=== PATIENT | female | born 1990 | race Caucasian/White ===

== ENCOUNTER 2024-08-23 17:23 | Emergency (ER) | payer MEDICAID, SELFPAY ==
[2024-08-23 17:28] VITALS: BP 162/96; PULSE 106; TEMP 36.7; O2SAT 99; BMI 30.4
--- NOTE | 2024-08-23 17:44 | ED.EAR1 ---
HPI - Ear Problem General Chief complaint: Ear Stated complaint: EARACHE Time Seen by Provider: 08/23/24 17:27 Source: patient Mode of arrival: walk-in Limitations: no limitations History of Present Illness HPI Narrative: 34-year-old female presents for severe right ear pain. She has had it for the last day or 2 and there is been no trauma or drainage. She does not have a sore throat or symptoms in the left ear. The pain is continuous. Related Data Previous Rx's ?Medication ?Instructions ?Recorded acetaminophen 300 mg-codeine 30 mg 1 tab PO Q6H PRN pain 3 days #14 08/23/24 tablet tabs amoxicillin 500 mg capsule 500 mg PO TID 10 days #30 caps 08/23/24 ibuprofen 800 mg tablet 800 mg PO Q8H PRN pain #20 tabs 08/23/24 Allergies Allergy/AdvReac Type Severity Reaction Status Date / Time No Known Drug Allergies Allergy Verified 08/23/24 17:30 Review of Systems ROS Narrative A ten point review of systems is negative except as noted above. PFSH PFSH Social History Little interest or pleasure in doing things: not at all Feeling down, depressed, or hopeless: not at all Exam Narrative Exam Narrative: Nurses note and vital signs reviewed and patient is not hypoxic. General: The patient appears uncomfortable. Skin: Warm, dry, no pallor noted. There is no rash noted. Head: Normocephalic, atraumatic Eye: Normal conjunctiva, no drainage Ears, Nose, Mouth, and Throat: oral mucosa is moist. Nares patent. Left TM is obscured by cerumen. The right external canal is normal without cerumen but the right TM is quite erythematous with a distorted light reflex. Cardiovascular: Regular Rate and Rhythm Respiratory: Patient is in no distress, no accessory muscle use, lungs are clear to auscultation, no wheezing, rales or rhonchi Back: non-tender GI: Soft and nontender Musculoskeletal: No joint swelling Neurological: A&O, normal speech Psychiatric: Cooperative Constitutional Vital Signs, click to edit/add: Last Vital Signs Temp 98.1 F 08/23/24 17:28 Pulse 106 H 08/23/24 17:28 Resp 18 08/23/24 17:28 BP 162/96 H 08/23/24 17:28 Pulse Ox 99 08/23/24 17:28 O2 Del Method Room Air 08/23/24 17:28 Course Vital Signs Vital signs: Vital Signs Temperature 98.1 F 08/23/24 17:28 Pulse Rate 106 H 08/23/24 17:28 Respiratory Rate 18 08/23/24 17:28 Blood Pressure 162/96 H 08/23/24 17:28 Pulse Oximetry 99 08/23/24 17:28 Oxygen Delivery Method Room Air 08/23/24 17:28 Temperature 98.1 F 08/23/24 17:28 Pulse Rate 106 H 08/23/24 17:28 Respiratory Rate 18 08/23/24 17:28 Blood Pressure 162/96 H 08/23/24 17:28 Pulse Oximetry 99 08/23/24 17:28 Oxygen Delivery Method Room Air 08/23/24 17:28 Medical Decision Making MDM Narrative Medical decision making narrative: My clinical impression is that she has otitis media. Treatment diagnosis and follow-up were discussed with the patient. Differential Diagnosis Differential Diagnosis: Otitis media, otitis externa Discharge Plan Discharge Chief Complaint: Ear Clinical Impression: Otitis media Patient Disposition: Home, Self-Care Time of Disposition Decision: 17:41 Condition: Good Mode of Transportation: Private Vehicle Prescriptions / Home Meds: New amoxicillin 500 mg capsule 500 mg PO TID 10 Days Qty: 30 0RF acetaminophen-codeine 300-30 mg tablet 1 tab PO Q6H PRN (Reason: pain) 3 Days Qty: 14 0RF ibuprofen 800 mg tablet 800 mg PO Q8H PRN (Reason: pain) Qty: 20 0RF Print Language: Albanian Instructions: Ear Infection (ED) Referrals: Physician,Non-Staff, MD [Primary Care Provider] - 1 week
[2024-08-23] MEDS: ACETAMINOPHEN 300 MG/ 30 MG CODEINE TABLET 1 TAB PO (17:51)
[2024-08-23] MEDS: AMOXICILLIN 500 MG CAPSULE PO (17:51)
[2024-08-23] MEDS: IBUPROFEN 400 MG TABLET 800 MG PO (17:51)
== END 2024-08-23 17:56 | disposition home or self-care (01) ==
PROVIDERS: Emergency Provider Emergency Medicine
DX: H66.90 Otitis media, unspecified, unspecified ear (principal)
CPT/HCPCS: 99283

== ENCOUNTER 2025-03-10 23:33 | Emergency (ER) | payer MEDICAID, SELFPAY ==
--- OUTSIDE RECORDS SUMMARY | 2025-03-10 23:41 | XMS_ITS | CCD ---
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 3:34 PM Pending Labs Inlab 06/05/2017 2:57 PM 06/05/2017 2:57 PM Lab Inlab 06/05/2017 2:57 PM 06/05/2017 2:57 PM Transfer Complete 06/05/2017 3:34 PM 06/05/2017 3:34 PM 06/05/2017 3:34 PM ADDRESS:[address] [place] [id number] [facility] DOC NOTES: Patient: TISH AGUILAR Age: 27 years Sex: Female : 1990 Associated Diagnoses: None Author: Damir Novoa DNP Basic Information Time seen: Date & time 06/05/17 13:47:00. History source: Patient, family. Arrival mode: Private vehicle. History limitation: None. 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 patients states pain is getting worse and size of tumor is increasing. 06/04/2017 00:41 EDT Chief Complaint states has a reddened jett under left arm, complains of extreme pain no drainage or fever noted . History of Present Illness The patient presents with abscess and Left axilla. The onset was Patient to the emergency department with complaint of pain redness and swelling to the left axilla ?2-3 days. She advises that she was seen here last night and was given antibiotics along with pain medicine and she advised today the symptoms are becoming more worse as the redness is increasing along with the swelling. She denies any fever or chills she denies any shoulder pain neck back pain or stiffness . The course/duration of symptoms is constant. Location: Left axilla. The character of symptoms is pain, redness and swelling. The degree of symptoms is severe. Risk factors consist of none. Prior episodes: none. Therapy today: none. Associated symptoms: denies fever and denies chills. Review of Systems Constitutional symptoms: no fever, no chills. Skin symptoms: Abscess left axilla. ENMT symptoms: Negative except as documented in HPI. Respiratory symptoms: Negative except as documented in HPI. Cardiovascular symptoms: Negative except as documented in HPI. Musculoskeletal symptoms: Negative except as documented in HPI. Neurologic symptoms: Negative except as documented in HPI. Psychiatric symptoms: Negative except as documented in HPI. Unless otherwise stated in this report the patient's positive and negative responses for review of systems for constitutional, eyes, ENT, cardiovascular, respiratory, gastrointestinal, neurological, genitourinary, musculoskeletal, and integument systems and related systems to the presenting problem are either as stated in the HPI or were not pertinent or were negative for the symptoms and/or complaints related to the presenting medical problem. Health Status Allergies: Allergic Reactions (All)Severity Not DocumentedBentyl- Dizziness.Flexeril- Vomiting and rash.Toradol- Dizziness and headache.. Medications: (Selected) PrescriptionsPrescribedBactrim D.S. 800 mg-160 mg Tab: 1 tab(s), Oral, BID, 20 tab(s), Refill(s) 0Keflex 500 mg Cap: 500 mg = 1 cap(s), Oral, QID, X 10 day(s), # 40 cap(s), Refills(s) 0. Past Medical/ Family/ Social History Medical history: ActiveNone ([id number])ResolvedPregnancy ([id number]): Onset on 07/15/2012 at 22 years. Resolved on 03/20/2013 at 22 years.Tobacco use during : Resolved on 10/29/2011 at 21 years.Tobacco use during : Resolved on 01/02/2012 at 21 years.. Surgical history: None ([id number]).. Family history: No family history items have been selected or recorded.. Social history: Social & Psychosocial FipdjxQhfupyd21/12/2010 Risk Assessment: Denies Alcohol Use Comment: last. - 01/02/2016 01:36 Ines Cerda RN NEmployment/Aedoad5408/29/2010 Status: Unemployed Highest education: High eetteq6408/29/2010 Risk Assessment: Medium NevkAajdmaiu01/15/2010 Risk Assessment: Does not exerciseHome/Czltjpiwyhb72/15/2010 Lives with: Father, Mother Living situation: Home/Independent Alcohol abuse in household: No Substance abuse in household: No Smoker in household: No Injuries/Abuse/Neglect in household: No Feels unsafe at home: No Safe place to go: Yes Agency(s)/Others notified: No Family/Friends available to help: Yes Concern for family members at home: No Major illness in household: No Financial concerns: NoNutrition/Nmvxzo3308/29/2010 Type of diet: Regular Sleeping concerns: OdBaezpo87/15/2010 Risk Assessment: Low Risk08/29/2010 Sexually active: Yes Current partners: 1Substance Abuse06/26/2010 Risk Assessment: Denies Substance Abuse Comment: last. - 01/02/2016 01:Ines Wells RN IQgavmtz49/12/2010 Risk Assessment: Denies Tobacco Use01/02/2012 Use: Current Type: Cigarettes Tobacco use per day: 10 Comment: states quit 2 months ago - 06/26/2010 22:42 - Uvaldo WILCOX, Sovdbxix68/28/2014 Use: Current Every Day Smoker Type: Cigarettes Tobacco use per day: Use: Current Every Day Smoker Type: Cigarettes Comment: 1ppd - 06/23/2014 15:24 - Keira WILCOX, Berkley Perry Comment: [place] smoking [place] [facility] [place]28/2015 14:27 - Carmita Bliss RN Comment: smokes 1 ppd. - 01/02/2016 01:36 - Ines Tena RN01/11/2016 Use: Current Every Day Smoker Type: Cigarettes Comment: 10/18 PPD - 01/11/2016 14:04 - Mara WILCOX, Rain09/27/2016 Use: Current Every Day Smoker Type: Cigarettes Comment: 1ppd - 09/27/2016 00:11 - Christal Jerez RN Comment: 1 10/16 ppd smoker - 12/19/2016 21:11 - Mesha Rothman RN Problem list: Active Problems (4)Current smoker None Tobacco use during . Physical Examination Vital Signs Vital Signs 06/05/2017 13:37 EDT Temperature Oral 36.9 DegC Peripheral Pulse Rate 88 bpm Respiratory Rate 16 br/min Systolic Blood Pressure 123 mmHg Diastolic Blood Pressure 70 mmHg SpO2 99 % 06/04/2017 01:39 EDT Nursing Progress Note Reason Other: Dr Clay at bedside 06/04/2017 00:41 EDT Temperature Oral 36.8 DegC Peripheral Pulse Rate 99 bpm Respiratory Rate 18 br/min Systolic Blood Pressure 140 mmHg Diastolic Blood Pressure 83 mmHg SpO2 98 % . Measurements 06/04/2017 00:41 EDT Height/Length Estimated 86 cm Weight Measured 173 kg . Basic Oxygen Information 06/05/2017 13:37 EDT SpO2 99 % Oxygen Therapy Room air 06/04/2017 00:41 EDT SpO2 98 % Oxygen Therapy Room air . General: Alert, mild distress. Skin: Warm, dry, pink, The patient has a large abscess to the left axilla area that is supple in the center and is ready for incision and drain.. Head: Normocephalic, atraumatic. Neck: Supple, trachea midline, no tenderness. Cardiovascular: Regular rate and rhythm, No murmur, Normal peripheral perfusion. Respiratory: Lungs are clear to auscultation, respirations are non-labored, breath sounds are equal, Symmetrical chest wall expansion. Chest wall: No tenderness. Back: Nontender, Normal range of motion, Normal alignment. Musculoskeletal: Normal ROM, normal strength, no tenderness, no swelling. Gastrointestinal: Soft, Nontender. Neurological: Alert and oriented to person, place, time, and situation, No focal neurological deficit observed, normal sensory observed, normal motor observed, normal speech observed, normal coordination observed. Psychiatric: Cooperative. Medical Decision Making Differential Diagnosis:: Abscess. Documents reviewed: Emergency department nurses' notes. Reexamination/ Reevaluation Time: 06/05/17 14:38:00 . Vital signs Basic Oxygen Information 06/05/2017 13:37 EDT SpO2 99 % Oxygen Therapy Room air 06/04/2017 00:41 EDT SpO2 98 % Oxygen Therapy Room air Notes: The patient was evaluated in the emergency department the patient does have a large abscess to the left axilla and appears ready for incision and drain. I did discuss this with the patient in detail and explained the risk and benefits and she agreed to proceed.Procedure:The area was cleaned with Betadine and then infiltrated with 6 mL of 1% lidocaine. The area was then incised superficially with him 11 blade and then with curved hemostats the area was opened and a large amount of pus was removed. The pus did have significant amount of foul odor. The wound was irrigated and then approximately 10-12 inches of iodoform gauze was placed.The patient tolerated the procedure well the area was covered with a sterile dressing and tape the patient is advised to continue the current medications. The patient will be given additional Tylenol No. 3 one every 4-6 hours as needed for pain #10 the patient will come back in 2 days to change the packing and repack. Impression and Plan Diagnosis Abscess of left axilla ([id number] L02.412, Discharge, Medical) Plan Condition: Improved, Stable. Disposition: Discharged: Time 06/05/17 14:43:00, to home. Prescriptions: Launch prescriptions Pharmacy:Tylenol with Codeine #3 oral tablet (Prescribe): 1 tab(s), Oral, q6hr for pain, 12 tab(s), Refill(s) 0. Patient was given the following educational materials: Abscess, Aref-cf-Badb, Incision and Drainage, Keep the area clean and dryReturn to the emergency department in 2 days or see her family doctor to have the packing removed and repackedReturn to the emergency department sooner if worse or problemsTylenol No. 3 one every4-6 hours as needed for pain #12. Counseled: Patient, Friend, Regarding diagnosis, Regarding treatment plan, Regarding prescription, Patient indicated understanding of instructions. MEDICAL INFORMATION: Prescriptions Given:Prescription Display tramadol (Ultram 50 mg Tab) 50 mg = 1 tab(s), Oral, q6hr, PRN Pain, # 12 tab(s), Refills(s) 0 PATIENT EDUCATION INFORMATION: Instructions:Incision and Drainage; Abscess, Yxnw-ry-Udsu Follow up:With: Address: When: [address] [employer], [address] [place] [id number] Business (1) In 2 days 06/07/2017 With: Address: When: [employer], [address] [place] [id number] Business (1) In 3 days DIAGNOSIS:Abscess of left axilla Normal [facility] ED Note-Physicianon 06-05-20 ED Note-Physician Patient: TISH AGUILAR Age: 27 years Sex: Female : 1990 Associated Diagnoses: None Author: Damir Novoa DNP Basic Information Time seen: Date & time 06/05/17 13:47:00. History source: Patient, family. Arrival mode: Private vehicle. History limitation: None. Additional information: Chief Complaint from Nursing Triage Note : Chief Complaint 06/05/2017 13:37 EDT Chief Complaint Patient states was seen here two days ago for tumor in armpit, recieved AT and Hematite. patients states pain is getting worse and size of tumor is increasing. 06/04/2017 00:41 EDT Chief Complaint states has a reddened jett under left arm, complains of extreme pain no drainage or fever noted . History of Present Illness The patient presents with abscess and Left axilla. The onset was Patient to the emergency department with complaint of pain redness and swelling to the left axilla ?2-3 days. She advises that she was seen here last night and was given antibiotics along with pain medicine and she advised today the symptoms are becoming more worse as the redness is increasing along with the swelling. She denies any fever or chills she denies any shoulder pain neck back pain or stiffness . The course/duration of symptoms is constant. Location: Left axilla. The character of symptoms is pain, redness and swelling. The degree of symptoms is severe. Risk factors consist of none. Prior episodes: none. Therapy today: none. Associated symptoms: denies fever and denies chills. Review of Systems Constitutional symptoms: no fever, no chills. Skin symptoms: Abscess left axilla. ENMT symptoms: Negative except as documented in HPI. Respiratory symptoms: Negative except as documented in HPI. Cardiovascular symptoms: Negative except as documented in HPI. Musculoskeletal symptoms: Negative except as documented in HPI. Neurologic symptoms: Negative except as documented in HPI. Psychiatric symptoms: Negative except as documented in HPI. Unless otherwise stated in this report the patient's positive and negative responses for review of systems for constitutional, eyes, ENT, cardiovascular, respiratory, gastrointestinal, neurological, genitourinary, musculoskeletal, and integument systems and related systems to the presenting problem are either as stated in the HPI or were not pertinent or were negative for the symptoms and/or complaints related to the presenting medical problem. Health Status Allergies: Allergic Reactions (All)Severity Not DocumentedBentyl- Dizziness.Flexeril- Vomiting and rash.Toradol- Dizziness and headache.. Medications: (Selected) PrescriptionsPrescribedBactrim D.S. 800 mg-160 mg Tab: 1 tab(s), Oral, BID, 20 tab(s), Refill(s) 0Keflex 500 mg Cap: 500 mg = 1 cap(s), Oral, QID, X 10 day(s), # 40 cap(s), Refills(s) 0. Past Medical/ Family/ Social History Medical history: ActiveNone ([id number])ResolvedPregnancy ([id number]): Onset on 07/15/2012 at 22 years. Resolved on 03/20/2013 at 22 years.Tobacco use during : Resolved on 10/29/2011 at 21 years.Tobacco use during : Resolved on 01/02/2012 at 21 years.. Surgical history: None ([id number]).. Family history: No family history items have been selected or recorded.. Social history: Social & Psychosocial HjzdfoXkvbavq75/12/2010 Risk Assessment: Denies Alcohol Use Comment: dencaroline. - 01/02/2016 01:Ines Wells RN NEmployment/Oebmge9008/29/2010 Status: Unemployed Highest education: High egwzai7408/29/2010 Risk Assessment: Medium KrnjFzkphgcg45/15/2010 Risk Assessment: Does not exerciseHome/Uljartuwltc12/15/2010 Lives with: Father, Mother Living situation: Home/Independent Alcohol abuse in household: No Substance abuse in household: No Smoker in household: No Injuries/Abuse/Neglect in household: No Feels unsafe at home: No Safe place to go: Yes Agency(s)/Others notified: No Family/Friends available to help: Yes Concern for family members at home: No Major illness in household: No Financial concerns: NoNutrition/Wpjhdj7108/29/2010 Type of diet: Regular Sleeping concerns: KbOlusis91/15/2010 Risk Assessment: Low Risk08/29/2010 Sexually active: Yes Current partners: 1Substance Abuse06/26/2010 Risk Assessment: Denies Substance Abuse Comment: last. - 01/02/2016 01:Ines Wells RN YEcktxuv96/12/2010 Risk Assessment: Denies Tobacco Use01/02/2012 Use: Current Type: Cigarettes Tobacco use per day: 10 Comment: states quit 2 months ago - 06/26/2010 22:42 - Uvaldo WILCOX, Odzxmlpr89/28/2014 Use: Current Every Day Smoker Type: Cigarettes Tobacco use per day: Use: Current Every Day Smoker Type: Cigarettes Comment: 1ppd - 06/23/2014 15:24 - Keira WILCOX, Berkley Perry Comment: [place] smoking [place] [facility] [place] 12/28/2015 14:27 - Carmita Bliss RN Comment: smokes 1 ppd. - 01/02/2016 01:Ines Wells RN N001/11/2016 Use: Current Every Day Smoker Type: Cigarettes Comment: 10/18 PPD - 01/11/2016 14:04 - Mara WILCOX, Rain09/27/2016 Use: Current Every Day Smoker Type: Cigarettes Comment: 1ppd - 09/27/2016 00:11 - Christal Jerez RN Comment: 1 /2 ppd smoker - 12/19/2016 21:11 - Lorna WILCOX, Mesha Benites Problem list: Active Problems (4)Current smoker None Tobacco use during . Physical Examination Vital Signs Vital Signs 06/05/2017 13:37 EDT Temperature Oral 36.9 DegC Peripheral Pulse Rate 88 bpm Respiratory Rate 16 br/min Systolic Blood Pressure 123 mmHg Diastolic Blood Pressure 70 mmHg SpO2 99 % 06/04/2017 01:39 EDT Nursing Progress Note Reason Other: Dr Clay at bedside 06/04/2017 00:41 EDT Temperature Oral 36.8 DegC Peripheral Pulse Rate 99 bpm Respiratory Rate 18 br/min Systolic Blood Pressure 140 mmHg Diastolic Blood Pressure 83 mmHg SpO2 98 % . Measurements 06/04/2017 00:41 EDT Height/Length Estimated 86 cm Weight Measured 173 kg . Basic Oxygen Information 06/05/2017 13:37 EDT SpO2 99 % Oxygen Therapy Room air 06/04/2017 00:41 EDT SpO2 98 % Oxygen Therapy Room air . General: Alert, mild distress. Skin: Warm, dry, pink, The patient has a large abscess to the left axilla area that is supple in the center and is ready for incision and drain.. Head: Normocephalic, atraumatic. Neck: Supple, trachea midline, no tenderness. Cardiovascular: Regular rate and rhythm, No murmur, Normal peripheral perfusion. Respiratory: Lungs are clear to auscultation, respirations are non-labored, breath sounds are equal, Symmetrical chest wall expansion. Chest wall: No tenderness. Back: Nontender, Normal range of motion, Normal alignment. Musculoskeletal: Normal ROM, normal strength, no tenderness, no swelling. Gastrointestinal: Soft, Nontender. Neurological: Alert and oriented to person, place, time, and situation, No focal neurological deficit observed, normal sensory observed, normal motor observed, normal speech observed, normal coordination observed. Psychiatric: Cooperative. Medical Decision Making Differential Diagnosis:: Abscess. Documents reviewed: Emergency department nurses' notes. Reexamination/ Reevaluation Time: 06/05/17 14:38:00 . Vital signs Basic Oxygen Information 06/05/2017 13:37 EDT SpO2 99 % Oxygen Therapy Room air 06/04/2017 00:41 EDT SpO2 98 % Oxygen Therapy Room air Notes: The patient was evaluated in the emergency department the patient does have a large abscess to the left axilla and appears ready for incision and drain. I did discuss this with the patient in detail and explained the risk and benefits and she agreed to proceed.Procedure:The area was cleaned with Betadine and then infiltrated with 6 mL of 1% lidocaine. The area was then incised superficially with him 11 blade and then with curved hemostats the area was opened and a large amount of pus was removed. The pus did have significant amount of foul odor. The wound was irrigated and then approximately 10-12 inches of iodoform gauze was placed.The patient tolerated the procedure well the area was covered with a sterile dressing and tape the patient is advised to continue the current medications. The patient will be given additional Tylenol No. 3 one every 4-6 hours as needed for pain #10 the patient will come back in 2 days to change the packing and repack. Impression and Plan Diagnosis Abscess of left axilla ([id number]-RH L02.412, Discharge, Medical) Plan Condition: Improved, Stable. Disposition: Discharged: Time 06/05/17 14:43:00, to home. Prescriptions: Launch prescriptions Pharmacy:Tylenol with Codeine #3 oral tablet (Prescribe): 1 tab(s), Oral, q6hr for pain, 12 tab(s), Refill(s) 0. Patient was given the following educational materials: Abscess, Wgql-ly-Etrf, Incision and Drainage, Keep the area clean and dryReturn to the emergency department in 2 days or see her family doctor to have the packing removed and repackedReturn to the emergency department sooner if worse or problemsTylenol No. 3 one every4-6 hours as needed for pain #12. Counseled: Patient, Friend, Regarding diagnosis, Regarding treatment plan, Regarding prescription, Patient indicated understanding of instructions. [facility] Comment on above: Result Comment: Electronically Signed By : Damir Novoa DNP\.br\Date and Time Signed: 06/05/17 14:45 EDT\.br\Electronically Co-Signed By: Iron Johnston DO\.stuart\Date and Time Co-Signed: 06/05/17 14:46 EDT ED Patient Education Noteon 06-05-2017 ED Patient Education Note Patient Education Materials Follows:MedicineIncision and DrainageIncision and drainage is a procedure in which a sac-like structure (cystic structure) is opened and drained. The area to be drained usually contains material such as pus, fluid, or blood. LET YOUR CAREGIVER KNOW ABOUT:? Allergies to medicine.? Medicines taken, including vitamins, herbs, eyedrops, fquq-fkn-djkcxby medicines, and creams.? Use of steroids (by mouth or creams).? Previous problems with anesthetics or numbing medicines.? History of bleeding problems or blood clots.? Previous surgery.? Other health problems, including diabetes and kidney problems.? Possibility of , if this applies. RISKS AND COMPLICATIONS? Pain.? Bleeding.? Scarring. ? Infection. BEFORE THE PROCEDUREYou may need to have an ultrasound or other imaging tests to see how large or deep your cystic structure is. Blood tests may also be used to determine if you have an infection or how severe the infection is. You may need to have a tetanus shot.PROCEDUREThe affected area is cleaned with a cleaning fluid. The cyst area will then be numbed with a medicine (local anesthetic). A small incision will be made in the cystic structure. A syringe or catheter may be used to drain the contents of the cystic structure, or the contents may be squeezed out. The area will then be flushed with a cleansing solution. After cleansing the area, it is often gently packed with a gauze or another wound dressing. Once it is packed, it will be covered with gauze and tape or some other type of wound dressing.?AFTER THE PROCEDURE? Often, you will be allowed to go home right after the procedure. ? You may be given antibiotic medicine to prevent or heal an infection.? If the area was packed with gauze or some other wound dressing, you will likely need to come back in 1 to 2 days to get it removed. ? The area should heal in about 14 days.Document Released: 03/27/2002 Document Revised: 04/01/2013 Document Reviewed: 11/25/2012ExitCare? Patient Information ?2014 EZ-Apps. This information is not intended to replace advice given to you by your health care provider. Make sure you discuss any questions you have with your health care provider.AbscessAn abscess (boil or furuncle) is an infected area on or under the skin. This area is filled with yellowish-white fluid (pus) and other material (debris). HOME CARE? Only take medicines as told by your doctor.? If you were given antibiotic medicine, take it as directed. Finish the medicine even if you start to feel better. ? If gauze is used, follow your doctor's directions for changing the gauze. ? To avoid spreading the infection:? Keep your abscess covered with a bandage.? Wash your hands well.? Do not share personal care items, towels, or whirlpools with others.? Avoid skin contact with others.? Keep your skin and clothes clean around the abscess. ? Keep all doctor visits as told. GET HELP RIGHT AWAY IF:? You have more pain, puffiness (swelling), or redness in the wound site.? You have more fluid or blood coming from the wound site.? You have muscle aches, chills, or you feel sick.? You have a fever.MAKE SURE YOU:? Understand these instructions. ? Will watch your condition.? Will get help right away if you are not doing well or get worse.Document Released: 03/19/2009 Document Revised: 04/01/2013 Document Reviewed: 12/13/2012ExitCare? Patient Information ?2015 EZ-Apps. This information is not intended to replace advice given to you by your health care provider. Make sure you discuss any questions you have with your health care provider. Normal [facility] ED Patient Summaryon 017 ED Patient Summary [place] [id number] Patient Discharge Instructions Person Information Name: TISH AGUILAR Age: 27 Years Date: 06/05/2017 1:34 PMDischarge Diagnosis: Abscess of left axilla Primary Care Physician: Alan Diaz DO, FAAFP Provider InformationPrimary Provider: Tom Johnston DO Maternal Child Nurse:None The exam and treatment you received in the Emergency Department were for an urgent problem and are not intended as complete care. It is important that you follow up with a doctor, nurse practitioner, or physician?s senior executive assistant for ongoing care. If your symptoms become worse or you do not improve as expected and you are unable to reach your usual health care provider, you should return to the Emergency Department. We are available 24 hours a day. TISH AGUILAR has been given the following list of patient education materials, prescriptions and follow-up instructions: Follow-up Instructions:With: Address: When: [address], [address] [place] [id number] Business (1) In 2 days 06/07/2017 With: Address: When: Alan Swifte, [facility] [place] [place], [id number] (1) In 3 days In the event that this physician does not participate in your insurance network, please consult with your insurance company to find a nearby participating provider. Patient Education Materials:Incision and Drainage; Abscess, Obio-ok-Kjsn Medications Given:Medication Dose Route lidocaine 10.00 mg IntraDermal Medication Information:New MedicationsPrinted Prescriptionstramadol (Ultram 50 mg Tab) 1 Tabs By Mouth every 6 hours as needed Pain. Refills: 0.Medications to Continue with No ChangesOther Medicationscephalexin (Keflex 500 mg Cap) 1 Capsules By Mouth 4 times a day for 10 Days. Refills: 0.sulfamethoxazole-trimethoprim (Bactrim D.S. 800 mg-160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
[2025-03-11] VITALS: BP 137/81; PULSE 89; TEMP 37.1; O2SAT 99; BMI 30.4
--- NOTE | 2025-03-11 00:27 | ED_ITS ---
HPI - Extremity Problem General Chief complaint: Extremity Problem, Nontraumatic Stated complaint: LOWER EXTREMITY INJURY Time Seen by Provider: 03/10/25 23:58 Source: patient Mode of arrival: walk-in Limitations: no limitations History of Present Illness HPI Narrative: working in her yard yesterday and tweaked her right knee. Immediate pain. Still has pain and points to medial aspect of the knee. denies numbness or weakness. Related Data Previous Rx's ?Medication ?Instructions ?Recorded acetaminophen 300 mg-codeine 30 mg 1 tab PO Q6H PRN pa in 3 days #14 08/23/24 tablet tabs amoxicillin 500 mg capsule 500 mg PO TID 10 days #30 c aps 08/23/24 ibuprofen 800 mg tablet 800 mg PO Q8H PRN pain #20 t abs 08/23/24 Allergies Allergy/AdvReac Type Severity Reaction Status Date / Time No Known Drug Allergies Allergy Verified 03/10/25 23:59 Review of Systems ROS Status of ROS 10 or more systems reviewed and unremark able except as noted in history and below PFSH PFSH Social History Little interest or pleasure in doing things: not at all Feeling down, depressed, or hopeless: not at all Exam Constitutional Vital Signs, click to edit/add: Last Vital Signs Temp 98.8 F 03/11/25 00:00 Pulse 89 03/11/25 00:00 Resp 19 03/11/25 00:00 BP 137/81 03/11/25 00:00 Pulse Ox 99 03/11/25 00:00 O2 Del Method Room Air 03/11/25 00:00 Common normals: no apparent distress, average body habitus, oriented x3, no limitations, healthy appearing, alert and well nourished [facility] Common normals: normocephalic and head/scalp atraumatic Eye Common normals: EOMs intact bilaterally and conjunctivae normal Respiratory Common normals: normal respiratory effort, no retractions and no use of accessory muscles Cardio Common normals: regular rate, regular rhythm, S1 normal heart sound and S2 normal heart sound Extremity Other: tenderness and sl. swelling medial knee joint. limited ROM due to pain. No discoloration mild tenderness right ankle. No ankle swelling Neuro Common normals: oriented x3, CN's II-XII intact bilaterally and moves all extremities Psych Appearance: grossly normal Course Vital Signs Vital signs: Vital Signs Temperature 98.8 F 03/11/25 00:00 Pulse Rate 89 03/11/25 00:00 Respiratory Rate 19 03/11/25 00:00 Blood Pressure 137/81 03/11/25 00:00 Pulse Oximetry 99 03/11/25 00:00 Oxygen Delivery Method Room Air 03/11/25 00:00 Temperature 98.8 F 03/11/25 00:00 Pulse Rate 89 03/11/25 00:00 Respiratory Rate 19 03/11/25 00:00 Blood Pressure 137/81 03/11/25 00:00 Pulse Oximetry 99 03/11/25 00:00 Oxygen Delivery Method Room Air 03/11/25 00:00 MDM - Extremity (Nontraumatic) MDM Narrative Medical decision making narrative: tweaked right knee one day [employer] while walking in her yard. Has pain and tenderness right medial knee. no discoloration. mild swelling. xray neg. Patient informed of diagnosis of knee sprain or internal derangement. provided knee brace and crutches and referred to ortho Discharge Plan Discharge Chief Complaint: Extremity Problem, Nontraumatic Clinical Impression: Right knee sprain Patient Disposition: Home, Self-Care Prescriptions / Home Meds: No Action amoxicillin 500 mg capsule 500 mg PO TID 10 Days Qty: 30 0RF acetaminophen-codeine 300-30 mg tablet 1 tab PO Q6H PRN (Reason: pain) 3 Days Qty: 14 0RF ibuprofen 800 mg tablet 800 mg PO Q8H PRN (Reason: pain) Qty: 20 0RF Print Language: Ugandan Instructions: Knee Sprain (ED) Additional Instructions: follow up with Dr silverman. Call office tomorrow for an appointment. Use ibuprofen for pain Referrals: Physician,Non-Staff, MD [Primary Care Provider] - 1 week
--- NOTE | 2025-03-11 00:32 | PC.NURSE ---
this patient updated of her plan of care: x-ray of right knee
--- NOTE | 2025-03-11 01:52 | PC.NURSE ---
i placed a knee immobilizer to right knee of this patient, and crutches issued and this patient returned a correct use of this crutches to me i gave this patient verbal and written discharge orders and this patient voices yes to understanding these discharge orders. at time of discharge this patient voices no concerns and shows no signs of distress
== END 2025-03-11 01:51 | disposition home or self-care (01) ==
PROVIDERS: Emergency Provider Internal Medicine
DX: S83.91XA Sprain of unspecified site of right knee, initial encounter (principal); X50.1XXA Overexertion from prolonged static or awkward postures, initial encounter
CPT/HCPCS: 73562; 99283